=== PATIENT | female | born 1960 | race Caucasian/White ===

== ENCOUNTER 2021-11-21 09:46 | Emergency (ER) | payer OTHER ==
[~2021-11-21] VITALS: Ht 157.5 cm; Wt 102.0 kg
[2021-11-21] MEDS ORDERED: HYDROCODONE/ACETAMINOPHEN 5/325MG TABLET PO STA (10:46)
[2021-11-21] MEDS ORDERED: KETOROLAC 30MG/ML VIAL IM STA ×2 (10:52→13:25)
[2021-11-21] MEDS ORDERED: KETOROLAC 30MG/ML VIAL IM NR (11:00)
[2021-11-21] MEDS ORDERED: IBUP-2029 PO (12:54)
[2021-11-21] MEDS ORDERED: CYCL5TAB PO ×3 (12:55→13:00)
[2021-11-21] MEDS ORDERED: ACETAMINOPHEN WITH CODEINE 300/30MG TABLET PO ONE (13:30)
[2021-11-21 14:18] VITALS: BP 138/82
== END 2021-11-21 14:19 | disposition home or self-care (01) ==
LOC: ER 10:05
DX: M79.652 Pain in left thigh (principal); S76.302A Unspecified injury of muscle, fascia and tendon of the posterior muscle group at thigh level, left thigh, initial encounter; E11.9 Type 2 diabetes mellitus without complications; E03.9 Hypothyroidism, unspecified; I10 Essential (primary) hypertension; W01.0XXA Fall on same level from slipping, tripping and stumbling without subsequent striking against object, initial encounter; Y93.89 Activity, other specified; Y92.524 Gas station as the place of occurrence of the external cause; Z88.6 Allergy status to analgesic agent; Z90.49 Acquired absence of other specified parts of digestive tract; Z98.890 Other specified postprocedural states
CPT/HCPCS: 73502; 73552; 96372; 99284; J1885